=== PATIENT | female | born 1970 | race Caucasian/White ===

== ENCOUNTER 2017-01-03 09:42 | Emergency (ER) | payer BC ==
[~2017-01-03] VITALS: Ht 154.9 cm; Wt 60.0 kg
[2017-01-03 09:46] VITALS: BP 134/63; PULSE 94; TEMP 99.2
[2017-01-03] MEDS ORDERED: ARMOUR THYROID30 MG PO (09:49)
[2017-01-03] MEDS ORDERED: AMOXICILLIN 8751 TAB PO (09:49)
[2017-01-03 10:28] LABS: BASO # 0.1 (0.0-0.2); BASO % 0.4 % (0.0-2.0); EOS # 0.2 (0.0-0.7); EOS % 1.4 % (0-4.0); GRAN # 9.5 (1.4-6.5); GRAN % 74.9 % (42.2-75.2); HEMATOCRIT 38.5 % (37.0-47.0); LYMPH # 2.3 (1.2-3.4); LYMPH % 17.9 % (20.0-51.0); MEAN CELL VOLUME 85 fl (80.0-100.0); MEAN CORPUSCULAR HEMOGLOBIN 31 pg (27.0-31.0); MEAN CORPUSCULAR HGB CONC 36 g/dl (33.0-37.0); MEAN PLATELET VOLUME 9.5 fl (7.4-10.4); MONO # 0.7 (0.1-0.6); MONO % 5.1 % (1.7-9.3); PLATELET COUNT 305 K/mm3 (130-400); RED BLOOD COUNT 4.55 M/mm3 (4.10-5.30); REDCELL DISTRIBUTION WIDTH-CV 14.7 % (11.5-14.5); WHITE BLOOD COUNT 12.7 K/mm3 (4.8-10.8)
[2017-01-03 10:31] LABS: PH 7 (5-8); SQUAMOUS EPITHELIAL 0-2 /hpf; URINE APPEARANCE Clear; URINE BACTERIA None Seen /hpf; URINE BILIRUBIN Negative (NEGATIVE); URINE BLOOD 1+ (NEGATIVE); URINE COLOR Straw; URINE GLUCOSE Negative (NEGATIVE); URINE KETONE Negative (NEGATIVE); URINE RBC None Seen /hpf; URINE UROBILINOGEN Negative (NEGATIVE); URINE WBC None Seen /hpf
[2017-01-03 10:43] LABS: ALBUMIN 4.3 gm/dL (3.5-5.0); CALCIUM 9.2 mg/dL (8.4-10.2); CREATININE, serum 0.59 mg/dL (0.52-1.25); POTASSIUM 3.7 mmol/L (3.4-5.0); TOTAL PROTEIN 7.7 gm/dL (6.4-8.2)
[2017-01-03] MEDS ORDERED: ZOFRAN 4MG T4 MG/TAB PO (13:20)
[2017-01-03] MEDS ORDERED: MACROBID 1100 MG/CAP PO (13:27)
[2017-01-03 13:37] LABS: CHLAMYDIA/TRACH by PCR Female NOT DETECTED; NEISSERIA GON by PCR Female NOT DETECTED
== END 2017-01-03 13:43 | disposition home or self-care (01) ==
LOC: COL.ER 09:42
PROVIDERS: Physician Assistant Medical
DX: R10.2 Pelvic and perineal pain (principal); N30.90 Cystitis, unspecified without hematuria
CPT/HCPCS: J2270; J2405; J7030

== ENCOUNTER → 2018-05-30 | Outpatient (CLI) | payer BC ==
[~2018-05-30] MED LIST: AMOXICILLIN 8751 TAB PO; ARMOUR THYROID30 MG PO; MACROBID 1100 MG/CAP PO; ZOFRAN 4MG T4 MG/TAB PO
== END ==
LOC: COL.RAD 14:31
DX: R51 Headache (principal); R42 Dizziness and giddiness
CPT/HCPCS: A9585